=== PATIENT | female | born 1960 | race Caucasian/White ===

== ENCOUNTER 2016-10-02 08:00 | Day surgery (SDC) | payer BC ==
[2016-10-02] MEDS ORDERED: Propofol 10 mg/ml Inj (20 ML) ONE ×3 (09:59→10:40)
== END 2016-10-02 12:00 | disposition home or self-care (01) ==
LOC: C.ENDO 08:00
PROVIDERS: ATTEND Internal Medicine Gastroenterology
DX: K29.70 Gastritis, unspecified, without bleeding (principal)
CPT/HCPCS: 43239; 88305; 88313; 88342; J2704